=== PATIENT | male | born 1940 | race Caucasian/White ===

== ENCOUNTER 2017-05-13 06:57 | Outpatient (CLI) | payer MEDICARE, OTHER | END 2017-05-13 06:58 | disposition home or self-care (01) | LOC: BICMRI 06:57 | PROVIDERS: ATTEND Neurological Surgery | DX: M47.812 Spondylosis without myelopathy or radiculopathy, cervical region (principal); M48.02 Spinal stenosis, cervical region; Z98.1 Arthrodesis status | CPT/HCPCS: 72050; 72141 ==

== ENCOUNTER 2020-03-08 07:39 | Outpatient (CLI) | payer MEDICARE, OTHER ==
[2020-03-09 15:24] LABS: SARS-CoV-2 MS2 Positive; SARS-CoV-2 N Gene Negative; SARS-CoV-2 S Gene Negative; SARS-CoV-2 by NAA Not Detected (NotDetected); SARS-CoV-2 orf1ab Negative
== END 2020-03-08 07:40 | disposition home or self-care (01) ==
LOC: LABBT 07:39
PROVIDERS: ATTEND Neurological Surgery
DX: M48.061 Spinal stenosis, lumbar region without neurogenic claudication (principal); Z20.828 Contact with and (suspected) exposure to other viral communicable diseases
CPT/HCPCS: 87635; U0003

== ENCOUNTER 2020-03-13 06:37 | Day surgery (SDC) | payer MEDICARE ==
[2020-03-12 11:04] VITALS: BMI 31.6
--- NOTE | 2020-03-12 20:25 | HP ---
HISTORY OF PRESENT ILLNESS: Mr. 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 He has had injections in his neck in the past, but denies to have success before and hopes to not move forward with these again. He does do pool therapy and feels it help his low back minimally, pain medications that he is on for fibromyalgia did not seem to help his back. PAST MEDICAL HISTORY: Significant for chronic pain syndrome, diabetes, heart disease, hypertension, osteoarthritis. CURRENT MEDICATIONS: 1. Olmesartan. 2. Norvasc. 3. Toprol. 4. Furosemide. 5. Lipitor. 6. Vascepa. 7. Hydrocodone. 8. Diazepam. 9. Celebrex . 10. Jardiance. 11. Farxiga. 12. Trulicity. 13. Metformin. 14. Diphenoxylate. 15. Levothyroxine. 16. Finasteride. 17. Testosterone. PAST SURGICAL HISTORY: Tonsillectomy, appendectomy, cervical spinal fusion, cardiac bypass. ALLERGIES: NO KNOWN DRUG ALLERGIES. PHYSICAL EXAMINATION: Deferred for Telehealth visit. PLAN: Dr. Noel met with the patient, reviewed imaging, advocated for an L3-L5 decompression. He explained to the patient the risks, benefits, and alternatives to the procedure. The patient expressed understanding and elected to move forward with surgery as discussed. I do believe he is mentally competent and capable of making medical decisions for himself. We will move forward with surgery as planned. Job ID: [id number]
[2020-03-13] MEDS ORDERED: Fentanyl 100 MCG/2 ML VIAL ONE (07:03)
[2020-03-13 07:45] LABS: #Basophils 0.1 thou/uL (0.0-0.2); #Eosinphils 0.4 thou/uL (0.0-0.7); #Lymphocytes 2.5 thou/uL (1.20-3.40); #Monocytes 0.9 thou/uL (0.11-0.59); #Neutrophils 3.4 thou/uL (1.40-6.50); %Basophils 0.8 % (0.0-1.0); %Lymphocytes 34.6 % (21.0-51.0); %Neutrophils 46.5 % (42.0-75.0); Hemoglobin 17.7 g/dL (14.0-18.0); Mean Corpuscular HGB CONC 33.8 g/dL (32.0-36.0); Mean Corpuscular Hemoglobin 31.8 pg (27.0-31.0); Mean Corpuscular Volume 94.2 fL (78.0-98.0); Mean Platelet Volume 7.8 fL (7.4-10.4); Platelet Count 180 thou/uL (130-400); RBC Distribution Width 12.5 % (11.5-14.5); Red Blood Cell (RBC) Count 5.56 mill/uL (4.70-6.10); White Blood Cell (WBC) Count 7.3 thou/uL (4.8-10.8)
[2020-03-13 08:00] LABS: Anion Gap 13 mmol/L (10-20); BUN (Urea Nitrogen) 38 mg/dL (8.4-25.7); Calc. Creatinine Clearance 59 mL/min (70-130); Calcium 9.3 mg/dL (7.8-10.44); Carbon Dioxide 26 mmol/L (23-31); Chloride 107 mmol/L (98-107); Estimated GFR-MDRD 44; Glucose 129 mg/dL (83-110); Sodium 142 mmol/L (136-145)
[2020-03-13] MEDS ORDERED: Bupivacaine HCl 0.5%/Epinephrine 1:200,000/PF 30 ml Vial ONE (08:30)
[2020-03-13] MEDS ORDERED: Thrombin 5000 UNITS/5 ML VIAL ONE (08:31)
[2020-03-13] MEDS ORDERED: Ondansetron HCl/PF 4 MG/2 ML Vial IVP PRN (09:47)
[2020-03-13] MEDS ORDERED: Tamsulosin HCl 0.4 MG CAP ONE (09:56)
--- NOTE | 2020-03-13 10:10 | OP ---
DATE OF PROCEDURE: 03/13/2020 WINDOWS DEPLOYMENT TECHNICIAN: Charles Combs PA-C INDICATION: Pain. DIAGNOSIS: Lumbar stenosis. PROCEDURES: L3 through L5 lumbar decompression. ANESTHESIA: General. DESCRIPTION OF PROCEDURE: The patient was brought into the operating room and placed under general anesthesia. He was flipped from the supine to prone position on the operating room table. A linear incision was planned spanning L3 through L5. After prepping and draping and after an appropriate preoperative pause, the incision was created. The soft tissues were swept away from midline. A self-retaining retractor was placed. After confirming the appropriate level with C-arm fluoroscopy, an Adson rongeur was used to remove the spinous process of L4, the superior aspect of L5, and the inferior aspect of L3. High-speed cutting drill bit as well as 2, 3, and 4 mm Kerrisons were then used to complete the laminectomy and the laminectomy was extended laterally to encompass the medial aspect of the facet joints in order to decompress the lateral recesses. After decompressing the L3-L4 and L4-L5 segments, the wound was irrigated. Hemostasis was maintained throughout. The wound was then closed in anatomic layers, and a pressure dressing was applied. There were no known procedural complications. Job ID: [id number]
[2020-03-13] MEDS ORDERED: Dexamethasone 20 MG/5 ML VIAL ONE (10:42)
[2020-03-13] MEDS ORDERED: Glycopyrrolate 0.2 MG/ML 5 ML SYRINGE ONE (10:42)
[2020-03-13] MEDS ORDERED: Ondansetron PF 4 MG/2 ML Vial ONE (10:42)
[2020-03-13] MEDS ORDERED: PHENYLEPHRINE-NS 100 MCG/ML 10 ML SYRINGE ONE (10:42)
[2020-03-13] MEDS ORDERED: diphenhydrAMINE 50 MG/ML VIAL ONE (10:42)
[2020-03-13] MEDS ORDERED: Rocuronium Bromide 10 MG/ML (10ML VIAL) ONE (10:42)
[2020-03-13] MEDS ORDERED: PROPOFOL 200 MG/20 ML VIAL ONE (10:42)
[2020-03-13] MEDS ORDERED: tiZANidine HCl 4 MG TAB ONE (11:51)
[2020-03-13] MEDS ORDERED: Acetaminophen/Codeine 30-300mg Tablet ONE (11:51)
== END 2020-03-13 13:30 | disposition home or self-care (01) ==
LOC: SDC 06:37
PROVIDERS: ATTEND Neurological Surgery
PROC: 01NB0ZZ Release Lumbar Nerve, Open Approach (ICD-10-PCS; principal; 2020-03-13)
DX: M48.062 Spinal stenosis, lumbar region with neurogenic claudication (principal); G89.4 Chronic pain syndrome; E11.9 Type 2 diabetes mellitus without complications; I11.9 Hypertensive heart disease without heart failure; M19.90 Unspecified osteoarthritis, unspecified site; Z79.4 Long term (current) use of insulin; Z79.82 Long term (current) use of aspirin; Z79.899 Other long term (current) drug therapy; Z95.1 Presence of aortocoronary bypass graft; Z98.1 Arthrodesis status
CPT/HCPCS: 36415; 36416; 76000; 80048; 85025; J0690; J1100; J1200; J2405; J2704; J3010

== ENCOUNTER 2020-03-13 22:06 | Emergency (ER) | payer MEDICARE ==
[2020-03-14] MEDS ORDERED: Lidocaine 1% w/Epinephrine 1:100K 20 ML VIAL ONE (00:33)
--- NOTE | 2020-03-14 07:06 | CON ---
DATE OF CONSULTATION: 03/14/2020 CHIEF COMPLAINT: Postoperative wound drainage. HISTORY OF PRESENT ILLNESS: Mr. Duncan is a pleasant 80-year-old male who presented to the emergency department this evening for bleeding from his lumbar wound. Patient underwent L3-L5 lumbar decompression earlier this morning with Dr. oNel's team. The patient reports that upon discharge from the hospital, he had his dressings soaked through with blood. He called the clinic and was instructed on pressure dressing changes and that he should present to the ED for persistent bleeding and soaking through his dressings. He did not take any aspirin or other blood thinners. PHYSICAL EXAMINATION: The patient is awake, alert, and appropriate. He has full strength throughout his bilateral lower extremity myotomes. He was observed ambulating slowly with an antalgic, but steady gait. His lumbar wound was covered with dressing. This was taken down and the Steri-Strips removed to reveal one area of active bleeding from the superior aspect of the incision. IMPRESSION/DIAGNOSIS: Postoperative wound bleeding. PLAN: Discussed with patient options for applying a pressure dressing with regular changes versus over-sewing the wound in the emergency department. The patient elected to proceed with over-sewing the wound. He was injected with approximately 12 mL of lidocaine 1% with epinephrine. Then, a running locking suture was used to over-sew the wound with 3-0 Ethilon sutures. The patient tolerated the procedure well. No apparent draining immediately following the procedure. The wound was re-covered with 4x4 gauze and tape. I again instructed the patient's on applying pressure dressings. I will follow up with patient via phone call tomorrow to see how he is doing. Otherwise, patient may follow up with his primary neurosurgical team as scheduled for re-evaluation, at which time, he can have the non-dissolvable suture removed. He was instructed to call sooner with any questions or concerns. Job ID: [id number]
== END 2020-03-14 01:23 | disposition home or self-care (01) ==
LOC: ERS 22:06
DX: M96.830 Postprocedural hemorrhage of a musculoskeletal structure following a musculoskeletal system procedure (principal); E03.9 Hypothyroidism, unspecified; E11.9 Type 2 diabetes mellitus without complications; I10 Essential (primary) hypertension; Z79.899 Other long term (current) drug therapy; Z79.82 Long term (current) use of aspirin
CPT/HCPCS: 12001

== ENCOUNTER 2020-06-19 15:22 | Outpatient (CLI) | payer MEDICARE ==
--- NOTE | 2020-06-19 16:00 | RAD ---
LUMBAR SPINE: 06/19/20 Four views. HISTORY: Back pain. Lumbar vertebrae maintain height and alignment. Moderate hypertrophic degenerative changes seen. Prom inent anterior bridging osteophytes were noted at the L2-3 and L3-4 levels. Loss of disc space throug hout the lumbar spine, most pronounced at L5-S1. Prominent facet hypertrophy. No evidence of spondylo listhesis. IMPRESSION: Moderate hypertrophic degenerative changes. Loss of disc space at L5-s1. POS: OFF
== END 2020-06-19 15:23 | disposition home or self-care (01) ==
LOC: BICRAD 15:22
PROVIDERS: ATTEND Specialist
DX: M51.16 Intervertebral disc disorders with radiculopathy, lumbar region (principal); M47.26 Other spondylosis with radiculopathy, lumbar region; M47.817 Spondylosis without myelopathy or radiculopathy, lumbosacral region; M48.062 Spinal stenosis, lumbar region with neurogenic claudication
CPT/HCPCS: 72110

== ENCOUNTER 2023-11-12 15:18 | Emergency (ER) | payer MEDICARE ==
[2023-11-12] MEDS ORDERED: predniSONE 20 MG TAB ONE (19:13)
== END 2023-11-12 19:29 | disposition home or self-care (01) ==
LOC: ERS 15:18
DX: M48.061 Spinal stenosis, lumbar region without neurogenic claudication (principal); M19.90 Unspecified osteoarthritis, unspecified site; E11.9 Type 2 diabetes mellitus without complications; I10 Essential (primary) hypertension
CPT/HCPCS: 72100; J7512

== ENCOUNTER 2025-02-27 09:27 | Emergency (ER) | payer MEDICARE ==
[2025-02-27] MEDS ORDERED: Droperidol 5 MG/2 ML VIAL ONE (10:39)
[2025-02-27 10:42] LABS: Bacteria/HPF None Seen HPF (None Seen); CAUTI Indications for Culture Pelvic or flank pain; Glucose, Urine (Dipstick) Greater than 1000 mg/dL (Negative); Leukocyte Negative Leu/uL (Negative); Protein, Urine (Dipstick) Negative (Neg-Trace); RBC/HPF 0-3 HPF (0-3); Specific Gravity, Urine 1.017 (1.002-1.036); WBC/HPF 0-3 HPF (0-3)
[2025-02-27] MEDS ORDERED: Mag-Al 1200 mg/1200 mg/30 ML UDCUP ONE (10:49)
[2025-02-27] MEDS ORDERED: Lidocaine Viscous Sol 2% 15 ml UD Cup ONE (10:49)
[2025-02-27 10:55] LABS: Urine Culture Reflex No No
[2025-02-27 10:56] LABS: #Basophils 0.05 10x3/uL (0.0-0.2); #Eosinophils 0.25 10x3/uL (0.0-0.7); #Monocytes 0.70 10x3/uL (0.11-0.59); #Neutrophils 4.30 10x3/uL (1.40-6.50); %Basophils 0.7 % (0.0-1.0); %Eosinophils 3.6 % (0.0-10.0); %Lymphocytes 22.5 % (21.0-51.0); %Monocytes 10.2 % (0.0-10.0); %Neutrophils 62.6 % (42.0-75.0); Hematocrit 46.3 % (42.0-52.0); Hemoglobin 15.6 g/dL (14.0-18.0); Mean Corpuscular Hemoglobin 31.0 pg (27.0-31.0); Mean Corpuscular Volume 92.0 fL (78.0-98.0); Platelet Count 193 10x3/uL (130-400); Red Blood Cell (RBC) Count 5.03 mill/uL (4.70-6.10); White Blood Cell (WBC) Count 6.88 10x3/uL (4.8-10.8)
[2025-02-27 11:49] LABS: ALT (SGPT) 12 U/L (Less than 45); AST (SGOT) 22 U/L (11-34); Albumin 3.7 g/dL (3.1-4.5); Alkaline Phosphatase 66 U/L (40-110); Anion Gap 18 mmol/L (10-20); BUN (Urea Nitrogen) 25 mg/dL (8.4-25.7); Bilirubin, Total 0.8 mg/dL (0.3-1.2); Calc. Creatinine Clearance 0 mL/min (70-130); Calcium 9.8 mg/dL (7.8-10.44); Carbon Dioxide 22 mmol/L (23-31); Chloride 104 mmol/L (98-107); Globulin 3.1 g/dL (2.4-3.5); Glucose 158 mg/dL (83-110); Lipase 23 U/L (8-78); Potassium 3.7 mmol/L (3.5-5.1); Sodium 140 mmol/L (136-145)
[2025-02-27] MEDS ORDERED: Iopamidol-370 76% 500 ML MDV (1 ML CHARGE) ONE (13:17)
== END 2025-02-27 13:48 | disposition home or self-care (01) ==
LOC: ERS 09:27
DX: K29.70 Gastritis, unspecified, without bleeding (principal); R14.1 Gas pain; E11.9 Type 2 diabetes mellitus without complications; I10 Essential (primary) hypertension
CPT/HCPCS: 36415; 74177; 80053; 81001; 83690; 85025; J1790

== ENCOUNTER 2025-05-06 02:10 | Inpatient (IN) | payer MEDICARE ==
[2025-05-06 03:01] LABS: #Basophils 0.06 10x3/uL (0.0-0.2); #Eosinophils 0.38 10x3/uL (0.0-0.7); #Monocytes 0.92 10x3/uL (0.11-0.59); #Neutrophils 2.81 10x3/uL (1.40-6.50); %Basophils 1.0 % (0.0-1.0); %Eosinophils 6.1 % (0.0-10.0); %Lymphocytes 32.6 % (21.0-51.0); %Monocytes 14.8 % (0.0-10.0); %Neutrophils 45.2 % (42.0-75.0); Hematocrit 38.1 % (42.0-52.0); Hemoglobin 13.0 g/dL (14.0-18.0); Mean Corpuscular Hemoglobin 31.6 pg (27.0-31.0); Mean Corpuscular Volume 92.5 fL (78.0-98.0); Platelet Count 184 10x3/uL (130-400); Red Blood Cell (RBC) Count 4.12 mill/uL (4.70-6.10); White Blood Cell (WBC) Count 6.22 10x3/uL (4.8-10.8)
[2025-05-06 03:15] LABS: ALT (SGPT) 19 U/L (Less than 45); AST (SGOT) 45 U/L (11-34); Albumin 3.5 g/dL (3.1-4.5); Alkaline Phosphatase 67 U/L (40-110); Anion Gap 16 mmol/L (10-20); BUN (Urea Nitrogen) 35 mg/dL (8.4-25.7); Bilirubin, Total 0.4 mg/dL (0.3-1.2); Calc. Creatinine Clearance 0 mL/min (70-130); Calcium 9.0 mg/dL (7.8-10.44); Carbon Dioxide 27 mmol/L (23-31); Chloride 104 mmol/L (98-107); Globulin 3.4 g/dL (2.4-3.5); Glucose 153 mg/dL (83-110); INR-International Normal Ratio 1.0; PTT 30.3 sec (22.9-36.1); Potassium 4.0 mmol/L (3.5-5.1); Prothrombin Time 13.7 sec (12.0-14.7); Sodium 143 mmol/L (136-145)
[2025-05-06 03:42] LABS: Glucose, Urine (Dipstick) >=1000 mg/dL (Negative); Leukocyte Negative (Negative); Protein, Urine (Dipstick) Negative (Neg-Trace); Specific Gravity, Urine 1.010 (1.005-1.030)
[2025-05-06 04:08] LABS: Bacteria/HPF None Seen HPF (None Seen); CAUTI Indications for Culture Dysuria,urgency,freq; RBC/HPF 21-50 HPF (0-3); WBC/HPF 0-3 HPF (0-3)
[2025-05-06 04:11] LABS: Urine Culture Reflex No No
[2025-05-06] MEDS ORDERED: Ondansetron PF 4 MG/2 ML Vial IVP PRN (06:08)
[2025-05-06] MEDS ORDERED: PHOS-NAK 1 PKT PACK PO PRN (06:15)
[2025-05-06] MEDS ORDERED: Magnesium Sulfate In Water 4 GM in Premix 1 BAG IVPB PRN (06:15)
[2025-05-06] MEDS ORDERED: Electrolyte Replacement Protocol 1 EACH FS SCH (06:15)
[2025-05-06] MEDS ORDERED: Potassium Chloride 20 MEQ in Premix 1 BAG IVPB PRN (06:15)
[2025-05-06 07:36] VITALS: BMI 19.4
[2025-05-06] MEDS: Finasteride 5 MG TAB PO SCH (09:32)
[2025-05-06] MEDS ORDERED: HYDROcodone/Acetaminophen 5/325 mg Tablet PO PRN (09:50)
[2025-05-06] MEDS ORDERED: Iopamidol-370 76% 500 ML MDV (1 ML CHARGE) ONE (10:06)
[2025-05-06] MEDS: HYDROcodone/Acetaminophen 5/325 mg Tablet PO PRN (10:56)
[2025-05-06] MEDS: Acetaminophen 325 MG TAB PO PRN (11:00)
[2025-05-07] MEDS: Levothyroxine 150 MCG TAB PO SCH (05:58)
[2025-05-07] MEDS: Losartan 25 MG TAB PO SCH (08:19)
[2025-05-07] MEDS: Aspirin 81 mg Enteric Coated Tablet PO SCH (08:21)
[2025-05-07] MEDS: Floranex 1 GM Packet PO SCH (08:27)
[2025-05-07 09:28] LABS: #Basophils 0.07 10x3/uL (0.0-0.2); #Eosinophils 0.34 10x3/uL (0.0-0.7); #Monocytes 0.88 10x3/uL (0.11-0.59); #Neutrophils 4.83 10x3/uL (1.40-6.50); %Basophils 0.9 % (0.0-1.0); %Eosinophils 4.3 % (0.0-10.0); %Lymphocytes 22.1 % (21.0-51.0); %Monocytes 11.2 % (0.0-10.0); %Neutrophils 61.2 % (42.0-75.0); Hematocrit 41.1 % (42.0-52.0); Hemoglobin 13.7 g/dL (14.0-18.0); Mean Corpuscular Hemoglobin 31.5 pg (27.0-31.0); Mean Corpuscular Volume 94.5 fL (78.0-98.0); Platelet Count 215 10x3/uL (130-400); Red Blood Cell (RBC) Count 4.35 mill/uL (4.70-6.10); White Blood Cell (WBC) Count 7.88 10x3/uL (4.8-10.8)
[2025-05-07 09:47] LABS: ALT (SGPT) 14 U/L (Less than 45); AST (SGOT) 28 U/L (11-34); Albumin 3.5 g/dL (3.1-4.5); Alkaline Phosphatase 73 U/L (40-110); Anion Gap 13 mmol/L (10-20); BUN (Urea Nitrogen) 25 mg/dL (8.4-25.7); Bilirubin, Total 0.6 mg/dL (0.3-1.2); Calc. Creatinine Clearance 47 mL/min (70-130); Calcium 9.6 mg/dL (7.8-10.44); Carbon Dioxide 26 mmol/L (23-31); Chloride 106 mmol/L (98-107); Globulin 3.3 g/dL (2.4-3.5); Glucose 253 mg/dL (83-110); Potassium 3.8 mmol/L (3.5-5.1); Sodium 141 mmol/L (136-145)
[2025-05-07] MEDS ORDERED: Iopamidol-370 76% 500 ML MDV (1 ML CHARGE) ONE (10:25)
[2025-05-07] MEDS ORDERED: Dextrose 50% Abboject 50 ML SYRINGE SLOW IVP PRN (11:00)
[2025-05-07] MEDS ORDERED: Glucagon 1 MG/ML KIT IM PRN (11:00)
[2025-05-07] MEDS: Furosemide 40 MG TAB PO SCH (12:40)
[2025-05-07] MEDS ORDERED: Non-Formulary Item 1 EACH (Celecoxib [Celecoxib] 200 MG Capsule) PO SCH (21:00)
[2025-05-07] MEDS ORDERED: Non-Formulary Item 1 EACH (Melatonin [Melatonin] 10 MG Capsule) PO SCH (21:00)
[2025-05-07] MEDS: Melatonin 3 MG TAB PO SCH (21:16)
[2025-05-08 05:45] LABS: #Basophils Less than 0.03 10x3/uL (0.0-0.2); #Eosinophils Less than 0.03 10x3/uL (0.0-0.7); #Monocytes 0.24 10x3/uL (0.11-0.59); #Neutrophils 6.56 10x3/uL (1.40-6.50); %Basophils 0.1 % (0.0-1.0); %Eosinophils 0.0 % (0.0-10.0); %Lymphocytes 23.7 % (21.0-51.0); %Monocytes 2.7 % (0.0-10.0); %Neutrophils 73.2 % (42.0-75.0); Hematocrit 41.8 % (42.0-52.0); Hemoglobin 14.3 g/dL (14.0-18.0); Mean Corpuscular Hemoglobin 31.6 pg (27.0-31.0); Mean Corpuscular Volume 92.3 fL (78.0-98.0); Platelet Count 232 10x3/uL (130-400); Red Blood Cell (RBC) Count 4.53 mill/uL (4.70-6.10); White Blood Cell (WBC) Count 8.97 10x3/uL (4.8-10.8)
[2025-05-08 05:54] LABS: Anion Gap 16 mmol/L (10-20); BUN (Urea Nitrogen) 35 mg/dL (8.4-25.7); Calc. Creatinine Clearance 42 mL/min (70-130); Calcium 9.7 mg/dL (7.8-10.44); Carbon Dioxide 25 mmol/L (23-31); Chloride 105 mmol/L (98-107); Glucose 193 mg/dL (83-110); Potassium 4.3 mmol/L (3.5-5.1); Sodium 142 mmol/L (136-145)
[2025-05-08] MEDS: Insulin Glargine 30 UNITS/0.3 ML VIAL SC SCH (08:37)
[2025-05-08] MEDS ORDERED: CHOLECALCIFEROL 1250 MCG PO SCH (09:00)
[2025-05-08] MEDS ORDERED: [UNRECOGNIZED DRUG - OTHER] PO SCH (09:00)
[2025-05-08] MEDS ORDERED: SAW PO SCH (09:00)
[2025-05-08] MEDS ORDERED: PYG PO SCH (09:00)
[2025-05-08] MEDS ORDERED: Cholecalciferol 1,000 UNITS (25 MCG) TAB PO SCH (09:00)
[2025-05-08] MEDS ORDERED: LYC PO SCH (09:00)
[2025-05-08] MEDS ORDERED: VIT E PO SCH (09:00)
[2025-05-08] MEDS ORDERED: BETA PO SCH (09:00)
[2025-05-08] MEDS ORDERED: Non-Formulary Item 1 EACH (Insulin Degludec [Tresiba Flextouch U-100] 100 UNIT/ML Insuln. SQ SCH (09:00)
[2025-05-08] MEDS ORDERED: SOD SEL PO SCH (09:00)
[2025-05-08 10:43] LABS: HIV (1/2) Antibody/Antigen NONREACTIVE (NonReactive); HIV 1/2 INDEX 0.05 S/CO (<1.00)
[2025-05-08 11:01] LABS: Vitamin B12 Greater than 2000 pg/mL (211-911)
[2025-05-08] MEDS: Pantoprazole 40 MG DR.TAB PO SCH (14:35)
[2025-05-08 16:02] LABS: Syphilis Antibody Index 0.12 S/CO (<1.00 Non-Reactive)
[2025-05-09] MEDS: Pantoprazole 40 MG DR.TAB PO SCH (09:22)
[2025-05-10 07:14] LABS: HSV 1 - DNA Negative (Negative); HSV 2 - DNA Negative (Negative)
[2025-05-10] MEDS ORDERED: Lidocaine 1% PF 5 ML VIAL ONE (12:42)
[2025-05-10] MEDS ORDERED: Sodium Bicarbonate 2.5 MEQ/5 ML SDV ONE (12:42)
[2025-05-13 08:23] LABS: Anion Gap 12 mmol/L (10-20); BUN (Urea Nitrogen) 68 mg/dL (8.4-25.7); Calc. Creatinine Clearance 39 mL/min (70-130); Calcium 8.3 mg/dL (7.8-10.44); Carbon Dioxide 23 mmol/L (23-31); Chloride 105 mmol/L (98-107); Glucose 100 mg/dL (83-110); Potassium 4.4 mmol/L (3.5-5.1); Sodium 136 mmol/L (136-145)
[2025-05-14] MEDS: Cyclobenzaprine 10 MG TAB PO SCH (03:05)
[2025-05-14 20:25] VITALS: BMI 19.4
[2025-05-15] MEDS: Calcium Carbonate 500 MG ChewTAB PO PRN (19:20)
[2025-05-16 19:35] VITALS: BP 123/65; TEMP 97.3
== END 2025-05-16 21:50 | DRG 477 ==
LOC: ERS 02:10 → T4-A 05:48 → OBSVTOIN 05-07 10:58
PROVIDERS: ADMIT Student in an Organized Health Care Education/Training Program; ATTEND Hospitalist
PROC: 0QB23ZX Excision of Right Pelvic Bone, Percutaneous Approach, Diagnostic (ICD-10-PCS; principal; 2025-05-11)
PROC: 0T9B70Z Drainage of Bladder with Drainage Device, Via Natural or Artificial Opening (ICD-10-PCS; 2025-05-11)
DX: M48.061 Spinal stenosis, lumbar region without neurogenic claudication (principal); L89.153 Pressure ulcer of sacral region, stage 3; L89.323 Pressure ulcer of left buttock, stage 3; G83.4 Cauda equina syndrome; C79.51 Secondary malignant neoplasm of bone; R33.8 Other retention of urine; E03.9 Hypothyroidism, unspecified; M79.7 Fibromyalgia; M19.90 Unspecified osteoarthritis, unspecified site; E11.65 Type 2 diabetes mellitus with hyperglycemia; I10 Essential (primary) hypertension; E29.1 Testicular hypofunction; C44.99 Other specified malignant neoplasm of skin, unspecified; F10.90 Alcohol use, unspecified, uncomplicated; I25.10 Atherosclerotic heart disease of native coronary artery without angina pectoris; C80.1 Malignant (primary) neoplasm, unspecified; R29.6 Repeated falls; K59.09 Other constipation; I44.0 Atrioventricular block, first degree; I45.10 Unspecified right bundle-branch block; Z98.890 Other specified postprocedural states; Z90.49 Acquired absence of other specified parts of digestive tract; Z90.89 Acquired absence of other organs; Z98.1 Arthrodesis status; Z95.1 Presence of aortocoronary bypass graft; Z79.4 Long term (current) use of insulin
CPT/HCPCS: 20225; 36415; 36416; 51702; 70450; 70551; 70553; 71260; 72157; 72158; 74177; 76376; 77002; 77012; 78306; 80048; 80053; 81001; 82164; 82274; 82378; 82607; 83036; 83880; 84443; 84484; 85025; 85610; 85730; 86780; 87389; 87529; 88307; 88342; 93005; 97139; A9503; C1830; G0103; G0378; J1100; J1815; J3010; Q9967